=== PATIENT | female | born 1955 | race Caucasian/White ===

== ENCOUNTER → 2020-04-03 07:51 | Outpatient (CLI) | payer MEDICARE, OTHER, SELFPAY ==
[2020-03-27 16:51] VITALS: BMI 22.5
[2020-04-03 09:04] VITALS: BP 135/74; PULSE 62; RESP 16; TEMP 36.2; O2SAT 100; BMI 22.4
[2020-04-03 09:42] LABS: Thyroid Stim Hormone (TSH) 2.53 uIU/mL (0.358-3.74)
[2020-04-03 12:33] VITALS: BP 135/67; PULSE 59; RESP 16; O2SAT 99
[2020-04-04 15:50] LABS: Thyroid Peroxidase AB < 9 IU/mL (0-34)
== END ==
PROVIDERS: Referring Provider Internal Medicine Endocrinology, Diabetes & Metabolism; Visit Provider Internal Medicine Endocrinology, Diabetes & Metabolism
DX: R55 Syncope and collapse (principal)
CPT/HCPCS: 96374; 96376; 36415; 82533; 84443; 86376; A4216; J0834; J3490